=== PATIENT | female | born 1975 ===

== ENCOUNTER 2021-11-29 13:52 | Emergency (ER) | payer SELFPAY ==
--- NOTE | 2021-11-29 14:50 | XRay Report ---
Left knee 3 views INDICATION: Fall FINDINGS: Alignment appears normal. No acute fracture or dislocation. Signer Name: Jimmy Willis MD Signed: 11/29/2021 2:46 PM Workstation Name: [id number]
[2021-11-30] MEDS ORDERED: IBUPROFEN 800 MG TAB PO ONE (03:50)
[2021-11-30] MEDS ORDERED: HYDROcodone/ACETAMINOPHEN 5-325 MG TAB PO ONE (03:50)
[2021-11-30 04:07] VITALS: BP 104/63
--- NOTE | 2021-11-30 04:11 | Emergency Department Report ---
ED General Adult HPI - General Chief complaint: Extremity Injury, Lower Stated complaint: FALL/LT KNEE PAIN Time Seen by Provider: 11/30/21 03:23 Source: patient, EMS Mode of arrival: Stretcher Limitations: No Limitations - History of Present Illness Initial comments: 45 Y F with no PMH reports to ER after fall at a grocery store. Patient report left knee pain with swelling. No other acute symptoms reported. Severity scale (0 -10): 0 - Related Data Previous Rx's Medication Instructions Recorded Last Taken Type Aspirin 325 mg PO QDAY #30 tablet 06/01/13 Unknown Rx Acetaminophen/Codeine [Tylenol 1 tab PO Q6H PRN 2 Days #8 tab 11/30/21 Unknown Rx /Codeine # 3 tab] Ibuprofen [Motrin] 600 mg PO Q8H PRN 6 Days #18 tablet 11/30/21 Unknown Rx Allergies Allergy/AdvReac Type Severity Reaction Status Date / Time No Known Allergies Allergy Unverified 11/07/21 04:04 ED Review of Systems ROS: Stated complaint: FALL/LT KNEE PAIN Other details as noted in HPI Comment: All other systems reviewed and negative Musculoskeletal: joint swelling, other ED Past Medical Hx - Past Medical History Previous Medical History?: No (Left knee pain) Hx Congestive Heart Failure: No Hx Diabetes: No Hx Asthma: No Hx COPD: No - Social History Smoking Status: Never Smoker Substance Use Type: None - Medications Home Medications: Home Medications Medication Instructions Recorded Confirmed Last Taken Type Aspirin 325 mg PO QDAY #30 tablet 06/01/13 Unknown Rx Acetaminophen/Codeine [Tylenol 1 tab PO Q6H PRN 2 Days #8 tab 11/30/21 Unknown Rx /Codeine # 3 tab] Ibuprofen [Motrin] 600 mg PO Q8H PRN 6 Days #18 tablet 11/30/21 Unknown Rx ED Physical Exam - General Limitations: No Limitations General appearance: alert, in no apparent distress - Head Head exam: Present: atraumatic, normocephalic - Eye Eye exam: Present: normal appearance - ENT ENT exam: Present: mucous membranes moist - Neck Neck exam: Present: normal inspection - Respiratory Respiratory exam: Present: normal lung sounds bilaterally. Absent: respiratory distress - Cardiovascular Cardiovascular Exam: Present: regular rate, normal rhythm. Absent: systolic murmur, diastolic murmur, rubs, gallop - GI/Abdominal GI/Abdominal exam: Present: soft, normal bowel sounds - Extremities Exam Extremities exam: Present: normal inspection - Expanded Lower Extremity Exam Left Knee exam: Present: tenderness, swelling. Absent: full ROM, deformity, dislocation - Back Exam Back exam: Present: normal inspection - Neurological Exam Neurological exam: Present: alert, oriented X3 - Psychiatric Psychiatric exam: Present: normal affect, normal mood - Skin Skin exam: Present: warm, dry, intact, normal color. Absent: rash ED Course Vital Signs 11/29/21 11/30/21 13:55 04:06 Temperature 98.8 F 97.5 F L Pulse Rate 65 53 L Respiratory 18 16 Rate Blood Pressure 115/75 104/63 [Left] O2 Sat by Pulse 100 100 Oximetry ED Medical Decision Making - Radiology Data [facility] [address] [place] [address] XRay Report Signed Patient: JIM WOODS MR#: [id number] 6 : 1975 Acct:[id number] Age/Sex: 45 / F ADM Date: 11/29/21 Loc: ED Attending Dr: Ordering Physician: CONSUELO BARBER MD Date of Service: 11/29/21 Procedure(s): XR knee 3V LT Accession Number(s): [id number] cc: ED MD SUNIL Fluoro Time In Minutes: Left knee 3 views INDICATION: Fall FINDINGS: Alignment appears normal. No acute fracture or dislocation. Signer Name: Jimmy Willis MD Signed: 11/29/2021 2:46 PM Workstation Name: [id number] Transcribed By: CW Dictated By: KIARRA WILLIS MD Electronically Authenticated By: KIARRA WILLIS MD Signed Date/Time: 11/29/211445 DD/ 45 TD/TT: - Medical Decision Making 45-year-old female no significant past medical history reports to ER left knee pain and swelling after sustaining a fall while at a grocery store. Left knee has swelling and tenderness noted. No dislocation no bruising noted. No deformity. X-ray negative for any acute fracture or dislocation. Patient received oral medication in ER. Patient informed of x-ray results. Patient to be sent home with oral medication for pain. Víctor wrap applied to patient's left knee. Patient agrees with plan of care and verbalized understanding. Vital Signs 11/29/21 11/30/21 13:55 04:06 Temperature 98.8 F 97.5 F L Pulse Rate 65 53 L Respiratory 18 16 Rate Blood Pressure 115/75 104/63 [Left] O2 Sat by Pulse 100 100 Oximetry Vital Signs 11/29/21 11/30/21 13:55 04:06 Temperature 98.8 F 97.5 F L Pulse Rate 65 53 L Respiratory 18 16 Rate Blood Pressure 115/75 104/63 [Left] O2 Sat by Pulse 100 100 Oximetry Critical care attestation.: If time is entered above; I have spent that time in minutes in the direct care of this critically ill patient, excluding procedure time. ED Disposition Clinical Impression: Left knee injury Qualifiers: Encounter type: initial encounter Qualified Code(s): S89.92XA - Unspecified i njury of left lower leg, initial encounter Disposition: HOME / SELF CARE / HOMELESS Is pt being admited?: No Condition: Stable Instructions: Knee Sprain, Adult Prescriptions: Ibuprofen [Motrin] 600 mg PO Q8H PRN 6 Days #18 tablet PRN Reason: Pain Acetaminophen/Codeine [Tylenol /Codeine # 3 tab] 1 tab PO Q6H PRN 2 Days #8 tab PRN Reason: Pain , Severe (7-10) Referrals: DIANNE JENNINGS MD [Primary Care Provider] - 3-5 Days
== END 2021-11-30 06:46 | disposition home or self-care (01) ==
LOC: ED 13:52
DX: S89.82XA Other specified injuries of left lower leg, initial encounter (principal); X58.XXXA Exposure to other specified factors, initial encounter; Y93.89 Activity, other specified; Y92.89 Other specified places as the place of occurrence of the external cause; Y99.8 Other external cause status
CPT/HCPCS: 99283; 99284